=== PATIENT | female | born 1970 | race Caucasian/White ===

== ENCOUNTER 2020-12-15 22:03 | Emergency (ER) | payer SELFPAY ==
[~2020-12-15] VITALS: Ht 160 cm; Wt 69.9 kg
[2020-12-15 22:12] VITALS: Ht 160 cm; Wt 69.9 kg
[2020-12-15 23:25] LABS: RED CELL DISTRIBUTION WIDTH 13.2 % (12.3-17.7)
[2020-12-15 23:27] LABS: BASOPHIL % 0.3 % (0.2-1.3); PLATELET COUNT 233 x10^3mcL (179-408)
[2020-12-15 23:47] LABS: CALCIUM 8.1 mg/dL (8.5-10.1); CARBON DIOXIDE 30.7 mmol/L (21-32); CHLORIDE SERUM 105 mmol/L (98-107); CREATININE SERUM 0.9 mg/dL (0.6-1.0); GFR1 > 60 mL/min; GLUCOSE SERUM 115 mg/dL (74-106); POTASSIUM SERUM 3.6 mmol/L (3.5-5.1); SODIUM SERUM 144 mmol/L (136-145)
[2020-12-15 23:53] LABS: ALBUMIN 3.4 g/dL (3.4-5.0); ALKALINE PHOSPHATASE 63 U/L (46-116); ALT/SGPT 77 U/L (14-59); AST/SGOT 84 U/L (15-37); BILIRUBIN TOTAL 0.4 mg/dL (0.20-1.00)
[2020-12-16 02:53] LABS: BASOPHIL % 0.3 % (0.2-1.3); PLATELET COUNT 254 x10^3mcL (179-408); RED CELL DISTRIBUTION WIDTH 13.4 % (12.3-17.7)
[2020-12-16 05:18] VITALS: BP 94/60
== END 2020-12-16 05:18 | disposition home or self-care (01) ==
LOC: ED 22:03
PROVIDERS: Emergency Medicine
DX: S30.0XXA Contusion of lower back and pelvis, initial encounter (principal); D64.9 Anemia, unspecified; R55 Syncope and collapse; X58.XXXA Exposure to other specified factors, initial encounter; Y93.89 Activity, other specified; Y92.89 Other specified places as the place of occurrence of the external cause; Y99.8 Other external cause status
CPT/HCPCS: Q9967